=== PATIENT | female | born 1985 | race Two or more races ===

== ENCOUNTER 2018-05-11 13:22 | Emergency (ER) | payer MEDICAID ==
[~2018-05-11] VITALS: Ht 152.4 cm; Wt 105.7 kg
--- NOTE | 2018-05-11 13:35 | NUR ---
PT BIB RA[facility], C/O LT LIP NUMBNESS & RT FINGERS NUMBNESS STARTED 30 MINS AGO. PT IS AAOX4, NOT IN RESPIRATORY DISTRESS, V/S STABLE, KEPT RESTED AND COMFORTABLE.
--- NOTE | 2018-05-11 13:40 | NUR ---
DR. BENAVIDES AT BEDSIDE FOR EVAL.
--- NOTE | 2018-05-11 13:50 | NUR ---
LABS DRAWNED,URINE COLLECTED AND SENT TO LAB. AWAITING RESULT.
[2018-05-11 14:09] LABS: BASOPHILS # (AUTO) 0.1 /CMM (0.0-0.2); BASOPHILS % (AUTO) 0.7 % (0.0-2.0); EOSINOPHILS % (AUTO) 2.1 % (0.0-6.0); HEMATOCRIT 41 % (33-45); HEMOGLOBIN 14.1 g/dL (11.5-14.8); LYMPHOCYTES % (AUTO) 23.3 % (20.0-44.0); MEAN CORPUSCULAR HGB CONC 34 g/dl (31.0-36.0); MEAN CORPUSCULAR VOLUME 89 fL (82-100); MONOCYTES # (AUTO) 0.4 /CMM (0.1-1.30); MONOCYTES % (AUTO) 4.3 % (2.0-12.0); NEUTROPHILS # (AUTO) 5.8 /CMM (1.8-8.9); NEUTROPHILS % (AUTO) 69.6 % (43.0-81.0); PLATELET COUNT (AUTO) 369 /CMM (150-450); RED BLOOD CELL COUNT(AUTO) 4.66 MIL/uL (4.0-5.2); WHITE BLOOD COUNT (AUTO) 8.4 K/uL (4.3-11.0)
[2018-05-11 15:14] LABS: CALCIUM, SERUM 8.7 mg/dL (8.5-10.1); CREATININE 0.7 mg/dL (0.6-1.3); POTASSIUM 3.4 mmol/L (3.5-5.1)
--- NOTE | 2018-05-11 15:34 | NUR ---
Patient discharged to home in stable condition. Written and verbal after care instructions given. Patient verbalizes understanding of instruction.
[2018-05-11 15:35] VITALS: BP 136/75
== END 2018-05-11 15:36 | disposition home or self-care (01) ==
LOC: ER 13:24
DX: R55 Syncope and collapse (principal); R20.2 Paresthesia of skin
CPT/HCPCS: 36415; 80048-TC; 84703-TC; 85025-TC; A4606; Z7610